=== PATIENT | female | born 1955 | race African-American/Black ===

== ENCOUNTER 2017-04-02 21:45 | Emergency (ER) | payer OTHER ==
[2017-04-02 21:53] VITALS: BMI 46.0
--- NOTE | 2017-04-02 22:14 | PDOC ---
History of Present Illness - General Chief Complaint: Allergic Reaction Stated Complaint: ALLERGIC REACTION Time Seen by Provider: 04/02/17 22:13 - History of Present Illness Initial Comments: 04/02/17 22:13 Ms. Farr is a 61 year old female with a significant past medical history of morbid obesity, hypertension, peripheral vascular disease, and chronic LE edema who presents to the emergency department with a 4 hour history of mild facial swelling after eating dinner. She says that she ate a meal she has had before with no problems from that restaurant, but that she also ordered barton for her mother (which she is allergic to). Symptoms started following dinner. The patient denies chest pain, shortness of breath, headache and dizziness. Denies fever, chills, nausea, vomit, diarrhea and constipation. Denies dysuria, frequency, urgency and hematuria. Past History - Past Medical History Allergies/Adverse Reactions: Allergies Allergy/AdvReac Type Severity Reaction Status Date / Time azithromycin [From Zithromax] Allergy Severe Swelling Verified 04/02/17 21:51 codeine [Codeine] Allergy Severe Swelling Verified 04/02/17 21:51 dexamethasone [From Decadron] Allergy Severe Swelling Verified 04/02/17 21:51 dexamethasone sod phosphate Allergy Severe Swelling Verified 04/02/17 21:51 [From Decadron] diltiazem HCl [From Cardizem] Allergy Severe Swelling Verified 04/02/17 21:51 montelukast sodium Allergy Severe Swelling Verified 04/02/17 21:51 [From Singulair] moxifloxacin HCl Allergy Severe Swelling Verified 04/02/17 21:51 [From Avelox] verapamil [Verapamil] Allergy Severe Swelling Verified 04/02/17 21:51 SOLE Inhibitors Allergy Unknown Swelling Verified 04/02/17 21:51 amoxicillin trihydrate Allergy Hives Verified 04/02/17 21:51 [From Augmentin] doxazosin mesylate Allergy Verified 04/02/17 21:51 [From Cardura] potassium clavulanate Allergy Hives Verified 04/02/17 21:51 [From Augmentin] tigecycline [From Tygacil] AdvReac Mild Itching Verified 04/02/17 21:51 candura Allergy Severe Swelling Uncoded 04/02/17 21:51 Home Medications: Ambulatory Orders Amlodipine Besylate [Norvasc -] 10 mg PO DAILY #0 tablet 06/14/12 Acetaminophen [Tylenol .Regular Strength -] 650 mg PO Q6H PRN #0 tablet Carvedilol [Coreg -] 12.5 mg PO BID #0 tablet 12/13/12 Anemia: Yes Asthma: Yes Cancer: No Cardiac Disorders: No CVA: No COPD: No CHF: No Dementia: No Diabetes: No GI Disorders: Yes (ACID REFLUX, HITIAL HERNIA) Disorders: No HTN: Yes Hypercholesterolemia: No Liver Disease: No Seizures: No Thyroid Disease: No - Surgical History Abdominal Surgery: No Appendectomy: No Cardiac Surgery: No Cholecystectomy: No Lung Surgery: No Neurologic Surgery: No Orthopedic Surgery: No - Immunization History Td Vaccination: Yes Immunization Up to Date: Yes - Suicide/Smoking/Psychosocial Hx Smoking Status: No Smoking History: Never smoked Years of Tobacco Use: 0 Have you smoked in the past 12 months: No Number of Cigarettes Smoked Daily: 0 Cigars Per Day: 0 Hx Alcohol Use: No Drug/Substance Use Hx: No Substance Use Type: None Hx Substance Use Treatment: No Review of Systems - Review of Systems Comments:: 04/02/17 22:14 GENERAL/CONSTITUTIONAL: No fever or chills. No weakness. HEAD, EYES, EARS, NOSE AND THROAT: +Facial swelling on the R jaw/cheek for 4 hours. No change in vision. No ear pain or discharge. No sore throat. CARDIOVASCULAR: No chest pain or shortness of breath RESPIRATORY: No cough, wheezing, or hemoptysis. GASTROINTESTINAL: No nausea, vomiting, diarrhea or constipation. GENITOURINARY: No dysuria, frequency, or change in urination. MUSCULOSKELETAL: No joint or muscle swelling or pain. No neck or back pain. SKIN: No rash NEUROLOGIC: No headache, vertigo, loss of consciousness, or change in strength/ sensation. ENDOCRINE: No increased thirst. No abnormal weight change HEMATOLOGIC/LYMPHATIC: No anemia, easy bleeding, or history of blood clots. ALLERGIC/IMMUNOLOGIC: No hives or skin allergy. *Physical Exam - Vital Signs Last Vital Signs Temp Pulse Resp BP Pulse Ox 98.4 F 77 20 124/84 99 04/02/17 21:51 04/02/17 21:51 04/02/17 21:51 04/02/17 21:51 04/02/17 21:51 - Physical Exam Comments: 04/02/17 22:14 GENERAL: Awake, alert, and fully oriented, in no acute distress HEAD: +R cheek mildly swollen. No signs of trauma, normocephalic, atraumatic EYES: PERRLA, EOMI, sclera anicteric, conjunctiva clear ENT: Auricles normal inspection, hearing grossly normal, nares patent, oropharynx clear without exudates. Moist mucosa NECK: Normal ROM, supple, no lymphadenopathy, JVD, or masses LUNGS: No distress, speaks full sentences, clear to auscultation bilaterally HEART: Regular rate and rhythm, normal S1 and S2, no murmurs, rubs or gallops, peripheral pulses normal and equal bilaterally. ABDOMEN: Soft, nontender, normoactive bowel sounds. No guarding, no rebound. No masses EXTREMITIES: Normal inspection, Normal range of motion, no edema. No clubbing or cyanosis. NEUROLOGICAL: Cranial nerves II through XII grossly intact. Normal speech, normal gait, no focal sensorimotor deficits SKIN: Warm, Dry, normal turgor, no rashes or lesions noted. Medical Decision Making - Medical Decision Making 04/02/17 22:30 Patient presents with extremely mild facial swelling without difficulty breathing, oropharynx swelling, or other allergic symptoms. Due to history it sounds like cross contamination of dinner w/ mother's barton is cause of symptoms. Patient already took 2 25mg Benadryl pills with arrest of symptom progression. 04/02/17 23:48 Patients symptoms have not progressed / patient feels swelling has subsided. Will D/C to home with instructions to return as needed. *DC/Admit/Observation/Transfer Diagnosis at time of Disposition: Allergic reaction Qualifiers: Encounter type: initial encounter Qualified Code(s): T78.40XA - Allergy, unspecified, initial encounter; T78.40XA - Allergy, unspecified, initial encounter - Discharge Dispostion Disposition: HOME - Patient Instructions Printed Discharge Instructions: DI for Food Allergy
--- NOTE | 2017-04-02 22:39 | PDOC ---
Attending Attestation - Resident Resident Name: [email or web address] - ED Attending Attestation I have performed the following: I have examined & evaluated the patient, The case was reviewed & discussed with the resident, I agree w/resident's findings & plan, Exceptions are as noted - HPI HPI: 04/02/17 22:38 61y F hx of htn, pvd, le edema presenting with mild swelling after eating dinner. pt states she has an allergy to many types of spices, shethinks she may have been exposed to some barton during dinner and there has been mild swelling of her left cheek - there has been no associated sob, wheezing, voice changes, dizziness, abd pain, n/v. pts exam is unremarakble including patent airways, no signifciant appreciable swelling. her lungs are clear and abd is soft nontender. pt took benadryl prior to arrival. will observe the pt, if she is asymptomatic for an hour will dc pt with home onitoring. 04/02/17 23:48 pt persistently asympatomic will dc with pd fu return precautions were discussed I discussed the physical exam findings, ancillary test results and final diagnoses with the patient. I answered all of the patient's questions. The patient was satisfied with the care received and felt comfortable with the discharge plan and treatment plan. The patient will call their primary care physician within 24 hours to arrange follow-up and will return to the Emergency Department with any new, persistent or worsening symptoms. - Physicial Exam PE: 04/04/17 09:21 see above - Medical Decision Making 04/04/17 09:21 see above
[2017-04-03 00:04] VITALS: BP 143/88; PULSE 62; TEMP 98.3
== END 2017-04-03 00:04 | disposition home or self-care (01) ==
LOC: JER 21:45
DX: R60.0 Localized edema (principal); T78.40XA Allergy, unspecified, initial encounter; I10 Essential (primary) hypertension; I73.9 Peripheral vascular disease, unspecified; E66.01 Morbid (severe) obesity due to excess calories; Z68.42 Body mass index [BMI] 45.0-49.9, adult
CPT/HCPCS: 99281-25

== ENCOUNTER 2017-06-24 06:26 | Emergency (ER) | payer OTHER ==
[2017-06-24 06:55] VITALS: BMI 46.0
[2017-06-24] MEDS ORDERED: predniSONE 20 MG TABLET (UD) PO ONE (07:37)
[2017-06-24] MEDS ORDERED: RANITIDINE HCL 150 MG TABLET (FP) PO ONE (07:42)
--- NOTE | 2017-06-24 07:42 | PDOC ---
History of Present Illness - General Chief Complaint: Allergic Reaction Stated Complaint: ALLERGIC RX Time Seen by Provider: 06/24/17 07:14 History Source: Patient Exam Limitations: No Limitations - History of Present Illness Initial Comments: 06/24/17 07:39 The patient is a 61F with a PMH of morbid obesity, HTN, PVD, and chronic LE edema who presents to the ED with complaints of an allergic reaction. She states that she woke up with morning feeling like her lips were swollen. She denies any tongue swelling or difficulty breathing. She states that she is allergic to "a lot of medications and spices" and ate a cheeseburger and fries and fruit punch from [employer] last night. She denies being hospitalized for allergic reactions in the past and she has never been intubated. She does states that she's had "plenty of allergic reactions". She denies any tongue swelling, periorbital edema, CP, SOB. Past History - Past Medical History Allergies/Adverse Reactions: Allergies Allergy/AdvReac Type Severity Reaction Status Date / Time azithromycin [From Zithromax] Allergy Severe Swelling Verified 06/24/17 06:56 codeine [Codeine] Allergy Severe Swelling Verified 06/24/17 06:56 dexamethasone [From Decadron] Allergy Severe Swelling Verified 06/24/17 06:56 dexamethasone sod phosphate Allergy Severe Swelling Verified 06/24/17 06:56 [From Decadron] diltiazem HCl [From Cardizem] Allergy Severe Swelling Verified 06/24/17 06:56 montelukast sodium Allergy Severe Swelling Verified 06/24/17 06:56 [From Singulair] moxifloxacin HCl Allergy Severe Swelling Verified 06/24/17 06:56 [From Avelox] verapamil [Verapamil] Allergy Severe Swelling Verified 06/24/17 06:56 SOLE Inhibitors Allergy Unknown Swelling Verified 06/24/17 06:56 amoxicillin trihydrate Allergy Hives Verified 06/24/17 06:56 [From Augmentin] doxazosin mesylate Allergy Verified 06/24/17 06:56 [From Cardura] potassium clavulanate Allergy Hives Verified 06/24/17 06:56 [From Augmentin] tigecycline [From Tygacil] AdvReac Mild Itching Verified 06/24/17 06:56 candura Allergy Severe Swelling Uncoded 06/24/17 06:56 Home Medications: Ambulatory Orders Amlodipine Besylate [Norvasc -] 10 mg PO DAILY #0 tablet 06/14/12 Acetaminophen [Tylenol .Regular Strength -] 650 mg PO Q6H PRN #0 tablet Carvedilol [Coreg -] 12.5 mg PO BID #0 tablet 12/13/12 Cetirizine HCl [Zyrtec -] 10 mg PO DAILY 06/24/17 Famotidine [Pepcid -] 40 mg PO DAILY #4 tablet MDD 1 06/24/17 Prednisone [Deltasone -] 40 mg PO DAILY #4 tablet MDD 1 06/24/17 Anemia: Yes Asthma: Yes Cancer: No Cardiac Disorders: No CVA: No COPD: No CHF: No Dementia: No Diabetes: No GI Disorders: Yes (ACID REFLUX, HITIAL HERNIA) Disorders: No HTN: Yes Hypercholesterolemia: No Liver Disease: No Seizures: No Thyroid Disease: No - Surgical History Abdominal Surgery: No Appendectomy: No Cardiac Surgery: No Cholecystectomy: No Lung Surgery: No Neurologic Surgery: No Orthopedic Surgery: No - Immunization History Td Vaccination: Yes Immunization Up to Date: Yes - Suicide/Smoking/Psychosocial Hx Smoking Status: No Smoking History: Never smoked Years of Tobacco Use: 0 Have you smoked in the past 12 months: No Number of Cigarettes Smoked Daily: 0 Cigars Per Day: 0 Hx Alcohol Use: No Drug/Substance Use Hx: No Substance Use Type: None Hx Substance Use Treatment: No Review of Systems - Review of Systems Able to Perform ROS?: Yes Comments:: 06/24/17 07:50 GENERAL/CONSTITUTIONAL: No fever or chills. No weakness. HEAD, EYES, EARS, NOSE AND THROAT: Positive for lip swelling. No change in vision. No ear pain or discharge. No sore throat. GASTROINTESTINAL: No nausea, vomiting, diarrhea, constipation, or abdominal pain. GENITOURINARY: No dysuria, frequency, hematuria, or change in urination. CARDIOVASCULAR: No chest pain, palpitations, or lightheadedness. RESPIRATORY: No cough, wheezing, shortness of breath, or hemoptysis. MUSCULOSKELETAL: No joint or muscle swelling or pain. No neck or back pain. SKIN: No rash or lesions. NEUROLOGIC: No headache, numbness, tingling, weakness, loss of consciousness, or change in strength/sensation. ENDOCRINE: No increased thirst. No abnormal weight change. HEMATOLOGIC/LYMPHATIC: No anemia, easy bleeding, or history of blood clots. ALLERGIC/IMMUNOLOGIC: No hives or skin allergy. Is the patient limited Russian proficient: No *Physical Exam - Vital Signs Last Vital Signs Temp Pulse Resp BP Pulse Ox 98.9 F 70 19 150/58 99 06/24/17 06:51 06/24/17 06:51 06/24/17 07:23 06/24/17 06:51 06/24/17 07:23 - Physical Exam Comments: 06/24/17 07:50 GENERAL: Well developed, well nourished. Awake and alert. No acute distress. HEENT: Mild perioral/lip edema. No tongue edema, no periobital edema. Normocephalic, atraumatic. Hearing grossly normal. Moist mucous membranes. NECK: Supple. Full ROM. No JVD. No lymphadenopathy. CARDIOVASCULAR: Regular rate and rhythm. No murmurs, rubs, or gallops. Distal pulses are 2+ and symmetric. PULMONARY: No evidence of respiratory distress. Lungs clear to auscultation bilaterally. No wheezing, rales or rhonchi. ABDOMINAL: Soft. Non-tender. Non-distended. No rebound or guarding. No organomegaly. Normoactive bowel sounds. GENITOURINARY: No CVA tenderness bilaterally. MUSCULOSKELETAL: Normal range of motion at all joints. No bony deformities or tenderness. EXTREMITIES: No cyanosis. No clubbing. 3+ edema in LE b/l. No calf tenderness. SKIN: Warm and dry. Normal capillary refill. No rashes. No jaundice. NEUROLOGICAL: Alert, awake, appropriate. Cranial nerves 2-12 intact. Normal speech. Gait is normal without ataxia. PSYCHIATRIC: Cooperative. Good eye contact. Appropriate mood and affect. Medical Decision Making - Medical Decision Making 06/24/17 07:51 The patient is a 61F with a history of allergic reactions who presents to the ED after stating that she woke up from sleep and saw that her lips were swollen. She has taken 2-25mg of benadryl. She is stable. Will administer zantac and prednisone and monitor. Pt is also hemodynamically stable. 06/24/17 08:33 Patient states she is feeling a little better. Perioral/lip edema slightly improved. 06/24/17 09:54 Patient's angioedema has improved. Will d/c home with instructions to come back if any of the angioedema worsens. Will prescribe prednisone daily and famotidine daily x 4 days. *DC/Admit/Observation/Transfer Diagnosis at time of Disposition: Allergic reaction Qualifiers: Encounter type: initial encounter Qualified Code(s): T78.40XA - Allergy, unspecified, initial encounter - Discharge Dispostion Disposition: HOME Condition at time of disposition: Stable Admit: No - Prescriptions Prescriptions: Famotidine [Pepcid -] 40 mg PO DAILY #4 tablet MDD 1 Prednisone [Deltasone -] 40 mg PO DAILY #4 tablet MDD 1 - Referrals - Patient Instructions Printed Discharge Instructions: DI for Adverse Drug Reaction -- Allergic Additional Instructions: Please return to the ER if symptoms persist, worsen, or new symptoms arise. Please follow up with your primary care physician in 2-3 days. Please return to the ER if you have any signs or symptoms of increased lip, tongue, or eye swelling, difficulty breathing, chest pain, shortness of breath, uncontrollable fever, chills, nausea, vomiting, numbness, tingling, or weakness in any part of your body, changes in vision, or slurred speech. Please take benadryl as needed for your allergies. - Post Discharge Activity
[2017-06-24] MEDS ORDERED: predniSONE 20 MG TABLET (UD) ONE (07:43)
[2017-06-24] MEDS ORDERED: RANITIDINE HCL 150 MG TABLET (FP) ONE (07:46)
--- NOTE | 2017-06-24 08:06 | PDOC ---
Attending Attestation - HPI HPI: 06/24/17 08:11 The patient is a 61 year old female with a significant PMH of HTN, PVD, obesity , and chronic lower extremity edema who presents to the emergency department with lip swelling beginning approximately last night. She reports her last meal being fries and fruit punch from [employer]. She reports taking 2 50 mg Benadryl this morning to some relief. The patient notes she has many allergies to spices and medications. She denies tongue swelling or respiratory changes. Allergies: Azithromycin, Codeine, Dexamethasone, Dexamethasone sod phosphate, Diltiazem HCl, Montelukast sodium, Moxifloxacin HCl, Verapamil, SOLE inhibitors, Amoxicillin trihydrate, Doxazosin mesylate, Potassium clavulanate, Tigecycline, Candura. - Physicial Exam PE: 06/24/17 08:11 GENERAL: Awake, alert, and fully oriented, in no acute distress HEAD: No signs of trauma EYES: PERRLA, EOMI, sclera anicteric, conjunctiva clear ENT: (+) Upper and lower lip swelling. No tongue or throat swelling. Auricles normal inspection, hearing grossly normal, nares patent, oropharynx clear without exudates. Moist mucosa NECK: Normal ROM, supple, no lymphadenopathy, JVD, or masses LUNGS: Breath sounds equal, clear to auscultation bilaterally. No wheezes, and no crackles. No stridor. HEART: Regular rate and rhythm, normal S1 and S2, no murmurs, rubs or gallops ABDOMEN: Soft, nontender, normoactive bowel sounds. No guarding, no rebound. No masses EXTREMITIES: Normal range of motion, no edema. No clubbing or cyanosis. No cords, erythema, or tenderness NEUROLOGICAL: Cranial nerves II through XII grossly intact. Normal speech, normal gait SKIN: Warm, Dry, normal turgor, no rashes or lesions noted. No urticaria. <Sridhar Sheppard - Last Filed: 06/24/17 08:11> - Resident Resident Name: Dominic Orantes - ED Attending Attestation I have performed the following: I have examined & evaluated the patient, The case was reviewed & discussed with the resident, I agree w/resident's findings & plan, Exceptions are as noted - Medical Decision Making 06/24/17 08:05 a/p: 61yo female with allergic reaction/lip swelling -no tongue swelling -posterior pharynx clear -no stridor -speaking in full sentences -tolerating secretions and drinking water -hx of multiple allergies - has seen allergiest in the past and was doing allergy shots in the past -took benaryl at home -will give steroids and pepcid in ED -no need for epipen at this time. 06/24/17 10:00 re-eval: pt improving. lip swelling improving stable for d/c to home has epipen at home follows with Dr. Alyssa Hooker for allergy recommended new allergy testing will give Rx for prednisone and pepcid pt understands all reasons to return to the ED and need for follow up. Pt feeling better <Lucina Curran - Last Filed: 06/24/17 10:01>
[2017-06-24 10:13] VITALS: BP 135/80; PULSE 82; TEMP 98.3
== END 2017-06-24 10:13 | disposition home or self-care (01) ==
LOC: JER 06:26
DX: T78.40XA Allergy, unspecified, initial encounter (principal); X58.XXXA Exposure to other specified factors, initial encounter; I10 Essential (primary) hypertension; I73.9 Peripheral vascular disease, unspecified; R60.0 Localized edema; K21.9 Gastro-esophageal reflux disease without esophagitis; E66.01 Morbid (severe) obesity due to excess calories; Z68.42 Body mass index [BMI] 45.0-49.9, adult
CPT/HCPCS: 99282-25

== ENCOUNTER 2017-06-26 14:26 | Emergency (ER) | payer OTHER ==
[2017-06-26 14:41] VITALS: BP 126/71; PULSE 79; TEMP 98.3; BMI 46.0
--- NOTE | 2017-06-26 15:22 | PDOC ---
History of Present Illness <Geo Sawant - Last Filed: 06/26/17 15:36> - General History Source: Patient Exam Limitations: No Limitations - History of Present Illness Initial Comments: 06/26/17 15:50 The patient is a 61-year-old female with a significant past medical history of morbid obesity, HTN, PVD, and chronic LE edema, who presents to the emergency department for left tongue swelling today. Patient has a history of many allergies, and reports she was here 3 days ago for an allergic reaction. She states they were unable to find the source of the last reaction. She states she was having Susan cookies and began to feel swelling at the left side of her tongue, accompanied by mild shortness of breath. She reports she took two Benadryls at home with moderate relief. She denies any history of nut allergies. Upon interview, she states she is feeling better, and that the swelling in her tongue has improved. The patient denies chest pain, headache and dizziness. The patient denies fever , chills, nausea, vomit, diarrhea and constipation. The patient denies dysuria, frequency, urgency and hematuria. <Yolis Peck - Last Filed: 06/26/17 15:51> - General Chief Complaint: Allergic Reaction Stated Complaint: ALLERGIC REACTION Time Seen by Provider: 06/26/17 15:22 Past History - Past Medical History Anemia: Yes Asthma: Yes Cancer: No Cardiac Disorders: No CVA: No COPD: No CHF: No Dementia: No Diabetes: No GI Disorders: Yes (ACID REFLUX, HITIAL HERNIA) Disorders: No HTN: Yes Hypercholesterolemia: No Liver Disease: No Seizures: No Thyroid Disease: No - Surgical History Abdominal Surgery: No Appendectomy: No Cardiac Surgery: No Cholecystectomy: No Lung Surgery: No Neurologic Surgery: No Orthopedic Surgery: No - Immunization History Td Vaccination: Yes Immunization Up to Date: Yes - Suicide/Smoking/Psychosocial Hx Smoking Status: No Smoking History: Never smoked Years of Tobacco Use: 0 Have you smoked in the past 12 months: No Number of Cigarettes Smoked Daily: 0 Cigars Per Day: 0 Hx Alcohol Use: No Drug/Substance Use Hx: No Substance Use Type: None Hx Substance Use Treatment: No <Geo Sawant - Last Filed: 06/26/17 15:36> <Yolis Peck - Last Filed: 06/26/17 15:51> - Past Medical History Allergies/Adverse Reactions: Allergies Allergy/AdvReac Type Severity Reaction Status Date / Time azithromycin [From Zithromax] Allergy Severe Swelling Verified 06/26/17 14:38 codeine [Codeine] Allergy Severe Swelling Verified 06/26/17 14:38 dexamethasone [From Decadron] Allergy Severe Swelling Verified 06/26/17 14:38 dexamethasone sod phosphate Allergy Severe Swelling Verified 06/26/17 14:38 [From Decadron] diltiazem HCl [From Cardizem] Allergy Severe Swelling Verified 06/26/17 14:38 montelukast sodium Allergy Severe Swelling Verified 06/26/17 14:38 [From Singulair] moxifloxacin HCl Allergy Severe Swelling Verified 06/26/17 14:38 [From Avelox] verapamil [Verapamil] Allergy Severe Swelling Verified 06/26/17 14:38 SOLE Inhibitors Allergy Unknown Swelling Verified 06/26/17 14:38 amoxicillin trihydrate Allergy Hives Verified 06/26/17 14:38 [From Augmentin] doxazosin mesylate Allergy Verified 06/26/17 14:38 [From Cardura] potassium clavulanate Allergy Hives Verified 06/26/17 14:38 [From Augmentin] tigecycline [From Tygacil] AdvReac Mild Itching Verified 06/26/17 14:38 candura Allergy Severe Swelling Uncoded 06/26/17 14:38 Home Medications: Ambulatory Orders Amlodipine Besylate [Norvasc -] 10 mg PO DAILY #0 tablet 06/14/12 Acetaminophen [Tylenol .Regular Strength -] 650 mg PO Q6H PRN #0 tablet Carvedilol [Coreg -] 12.5 mg PO BID #0 tablet 12/13/12 Cetirizine HCl [Zyrtec -] 10 mg PO DAILY 06/24/17 Famotidine [Pepcid -] 40 mg PO DAILY #4 tablet MDD 1 06/24/17 Prednisone [Deltasone -] 40 mg PO DAILY #4 tablet MDD 1 06/24/17 Review of Systems - Review of Systems Able to Perform ROS?: Yes Comments:: 06/26/17 15:50 GENERAL/CONSTITUTIONAL: No fever or chills. No weakness. HEAD, EYES, EARS, NOSE AND THROAT: No change in vision. No ear pain or discharge. No sore throat. (+) Left tongue swelling. CARDIOVASCULAR: No chest pain or shortness of breath. RESPIRATORY: No cough, wheezing, or hemoptysis. GASTROINTESTINAL: No nausea, vomiting, diarrhea or constipation. GENITOURINARY: No dysuria, frequency, or change in urination. MUSCULOSKELETAL: No joint or muscle swelling or pain. No neck or back pain. SKIN: No rash NEUROLOGIC: No headache, vertigo, loss of consciousness, or change in strength/ sensation. ENDOCRINE: No increased thirst. No abnormal weight change. HEMATOLOGIC/LYMPHATIC: No anemia, easy bleeding, or history of blood clots. ALLERGIC/IMMUNOLOGIC: No hives or skin allergy. <Peck,Yolis - Last Filed: 06/26/17 15:51> *Physical Exam - Vital Signs Last Vital Signs Temp Pulse Resp BP Pulse Ox 98.3 F 79 20 126/71 99 06/26/17 14:38 06/26/17 14:38 06/26/17 14:38 06/26/17 14:38 06/26/17 14:38 <Geo Sawant - Last Filed: 06/26/17 15:36> - Vital Signs Last Vital Signs Temp Pulse Resp BP Pulse Ox 98.3 F 79 20 126/71 99 06/26/17 14:38 06/26/17 14:38 06/26/17 14:38 06/26/17 14:38 06/26/17 14:38 - Physical Exam Comments: 06/26/17 15:50 GENERAL: Awake, alert, and fully oriented, in no acute distress HEAD: No signs of trauma EYES: PERRLA, EOMI, sclera anicteric, conjunctiva clear ENT: Auricles normal inspection, hearing grossly normal, nares patent, oropharynx clear without exudates. Moist mucosa NECK: Normal ROM, supple, no lymphadenopathy, JVD, or masses LUNGS: Breath sounds equal, clear to auscultation bilaterally. No wheezes, and no crackles HEART: Regular rate and rhythm, normal S1 and S2, no murmurs, rubs or gallops ABDOMEN: Soft, nontender, normoactive bowel sounds. No guarding, no rebound. No masses EXTREMITIES: Normal range of motion, no edema. No clubbing or cyanosis. No cords, erythema, or tenderness NEUROLOGICAL: Cranial nerves II through XII grossly intact. Normal speech, normal gait SKIN: Warm, Dry, normal turgor, no rashes or lesions noted. <Yolis Peck - Last Filed: 06/26/17 15:51> *DC/Admit/Observation/Transfer - Discharge Dispostion Admit: No - Attestations Physician Attestion: 06/26/17 15:22 I, Dr. Geo Sawant, attest that this document has been prepared under my direction and personally reviewed by me in its entirety. I further attest, that it accurately reflects all work, treatment, procedures and medical decision -making performed by me. <Geo Sawant - Last Filed: 06/26/17 15:36> - Attestations Scribe Attestion: 06/26/17 15:51 Documentation prepared by Yolis Peck, acting as biomedical manager for Geo Sawant MD/DO. <Yolis Peck - Last Filed: 06/26/17 15:51> Diagnosis at time of Disposition: Anxiety Allergic reaction Qualifiers: Encounter type: initial encounter Qualified Code(s): T78.40XA - Allergy, unspecified, initial encounter - Discharge Dispostion Disposition: HOME Condition at time of disposition: Good - Referrals Referrals: Alejandro Wilkes MD [Primary Care Provider] - - Patient Instructions Printed Discharge Instructions: DI for Eye Allergic Reaction Additional Instructions: Mrs Farr, Nathalia you are going through this right now. See your primary care doctor for a referral to an [facility] teacher for blood testing to see what it is that you are allergic to. Otherwise return to us if any problems whatsoever. Best- Dr. Geo Sawant - Post Discharge Activity
== END 2017-06-26 15:50 | disposition home or self-care (01) ==
LOC: JER 14:26
DX: F41.9 Anxiety disorder, unspecified (principal); T78.40XA Allergy, unspecified, initial encounter; I10 Essential (primary) hypertension; J45.909 Unspecified asthma, uncomplicated; K21.9 Gastro-esophageal reflux disease without esophagitis
CPT/HCPCS: 99282-25

== ENCOUNTER 2017-09-12 17:12 | Emergency (ER) | payer OTHER ==
[2017-09-12 17:43] VITALS: BP 116/66; PULSE 65; TEMP 98; BMI 45.1
--- NOTE | 2017-09-12 17:49 | PDOC ---
History of Present Illness - General Chief Complaint: Allergic Reaction Stated Complaint: ALLERGIC REACTION Time Seen by Provider: 09/12/17 17:48 - History of Present Illness Initial Comments: 09/12/17 18:12 Chief complaint: ALLERGIC reaction History of present illness: 61 years old past medical history significant for hypertension, multiple ALLERGIES presents emergency department after developing some throat itching and tightness after eating a chicken salad sandwich. Patient took 2 Benadryl and came to the emergency Department. Upon arrival to the emergency department her symptoms have resolved. She endorses no difficulty breathing or swallowing or tightness. Symptoms were exacerbated by chicken alleviated by Benadryl therefore moderate in severity and nonradiating. There is no associated fever chills headache chest pain shortness of breath Past History - Past Medical History Allergies/Adverse Reactions: Allergies Allergy/AdvReac Type Severity Reaction Status Date / Time azithromycin [From Zithromax] Allergy Severe Swelling Verified 06/26/17 14:38 codeine [Codeine] Allergy Severe Swelling Verified 06/26/17 14:38 dexamethasone [From Decadron] Allergy Severe Swelling Verified 06/26/17 14:38 dexamethasone sod phosphate Allergy Severe Swelling Verified 06/26/17 14:38 [From Decadron] diltiazem HCl [From Cardizem] Allergy Severe Swelling Verified 06/26/17 14:38 montelukast sodium Allergy Severe Swelling Verified 06/26/17 14:38 [From Singulair] moxifloxacin HCl Allergy Severe Swelling Verified 06/26/17 14:38 [From Avelox] verapamil [Verapamil] Allergy Severe Swelling Verified 06/26/17 14:38 SOLE Inhibitors Allergy Unknown Swelling Verified 06/26/17 14:38 amoxicillin trihydrate Allergy Hives Verified 06/26/17 14:38 [From Augmentin] doxazosin mesylate Allergy Verified 06/26/17 14:38 [From Cardura] potassium clavulanate Allergy Hives Verified 06/26/17 14:38 [From Augmentin] tigecycline [From Tygacil] AdvReac Mild Itching Verified 06/26/17 14:38 candura Allergy Severe Swelling Uncoded 06/26/17 14:38 Home Medications: Ambulatory Orders Amlodipine Besylate [Norvasc -] 10 mg PO DAILY #0 tablet 06/14/12 Acetaminophen [Tylenol .Regular Strength -] 650 mg PO Q6H PRN #0 tablet Carvedilol [Coreg -] 12.5 mg PO BID #0 tablet 12/13/12 Cetirizine HCl [Zyrtec -] 10 mg PO DAILY 06/24/17 Famotidine [Pepcid -] 40 mg PO DAILY #4 tablet MDD 1 06/24/17 predniSONE [Deltasone -] 40 mg PO DAILY #4 tablet MDD 1 06/24/17 Epinephrine [Epipen 2-Claus] 0.3 mg IJ ASDIR #1 kit 09/12/17 Anemia: Yes Asthma: Yes Cancer: No Cardiac Disorders: No CVA: No COPD: No CHF: No Dementia: No Diabetes: No GI Disorders: Yes (ACID REFLUX, HITIAL HERNIA) Disorders: No HTN: Yes Hypercholesterolemia: No Liver Disease: No Seizures: No Thyroid Disease: No Other medical history: lymphodema - Surgical History Abdominal Surgery: No Appendectomy: No Cardiac Surgery: No Cholecystectomy: No Lung Surgery: No Neurologic Surgery: No Orthopedic Surgery: No - Immunization History Td Vaccination: Yes Immunization Up to Date: Yes - Suicide/Smoking/Psychosocial Hx Smoking Status: No Smoking History: Never smoked Years of Tobacco Use: 0 Have you smoked in the past 12 months: No Number of Cigarettes Smoked Daily: 0 Cigars Per Day: 0 Information on smoking cessation initiated: No Hx Alcohol Use: No Drug/Substance Use Hx: No Substance Use Type: None Hx Substance Use Treatment: No Review of Systems - Review of Systems Comments:: 09/12/17 18:13 ROS: A complete review of 10 out of 10 review of systems is taken and is negative apart from what is previously mentioned below and in the HPI. *Physical Exam - Vital Signs Last Vital Signs Temp Pulse Resp BP Pulse Ox 98.0 F 65 16 116/66 98 09/12/17 17:15 09/12/17 17:15 09/12/17 17:15 09/12/17 17:15 09/12/17 17:15 - Physical Exam Comments: 09/12/17 18:14 Vitals: Triage Vital signs reviewed General Appearance: no acute distress, well nourished well developed, Head: Atraumatic, Eyes: Pupils equal reactive round, extraocular movement intact Nose: Nares patent bilaterally;no nasal congestion Throat: Posterior oropharynx without erythema, mucous membranes moist,, no stridor Neck: Supple;No Nucal rigidity Chest Wall: Nontender Cardiac: Regular rate and rhythym, no murmurs, no rubs, no gallops, Lungs: Clear to auscultation bilateral, good air movement bilaterally, Abdomen: Soft, non distended, normal bowel sounds, non tender to palpation Extremities: Full range of motion to all extremities, no cyanosis, clubbing, or edema Skin: Warm and dry, no rashes or lesions, no rash, no petechiae Psych: normal mood, normal affect Medical Decision Making - Medical Decision Making 09/12/17 18:14 Patient with mild ALLERGIC reaction resolved with Benadryl here in the emergency department well-appearing no apparent distress no stridor no symptoms at this time. We'll discharge with when necessary Benadryl as well as a prescription for EpiPen in case of more severe ALLERGIC reaction Patient will follow-up with her primary care provider once 2 days Findings, the need for follow-up, strict return instructions discussed with patient. *DC/Admit/Observation/Transfer Diagnosis at time of Disposition: Allergic reaction Qualifiers: Encounter type: initial encounter Qualified Code(s): T78.40XA - Allergy, unspecified, initial encounter - Referrals - Patient Instructions Printed Discharge Instructions: DI for Food Allergy Additional Instructions: Continue [id number] Benadryl as directed on package. EpiPen for severe life-threatening ALLERGIC reaction. Return to the ED for any severe worsening symptoms or for any concerns. Follow-up with your doctor in 1-2 days. - Post Discharge Activity
== END 2017-09-12 18:26 | disposition home or self-care (01) ==
LOC: JER 17:12
DX: T78.1XXA Other adverse food reactions, not elsewhere classified, initial encounter (principal); X58.XXXA Exposure to other specified factors, initial encounter
CPT/HCPCS: 99281-25

== ENCOUNTER 2017-11-18 19:22 | Emergency (ER) | payer OTHER ==
[2017-11-18 20:05] VITALS: BP 152/86; PULSE 82; TEMP 97.2; BMI 26.5
--- NOTE | 2017-11-18 20:09 | PDOC ---
History of Present Illness - General Chief Complaint: Allergic Reaction Stated Complaint: ALLERGIC REACTION Time Seen by Provider: 11/18/17 19:53 History Source: Patient, Old Records Exam Limitations: No Limitations - History of Present Illness Initial Comments: 11/18/17 20:03 This 61-year-old woman with history of multiple food and medication ALLERGIES, lymphedema who presents emergency Department with feeling of a "swollen tongue" after eating macaroni and cheese she got at its her mormonism today. Patient states this is abnormal in the past and she took Benadryl 50 mg orally prior to coming to the hospital. Patient has an EpiPen was afraid to use it. She activated EMS for transfer to the emergency department. Upon arrival patient was totally asymptomatic and no longer has the "swollen tongue" feeling that she had which prompted EMS activation. She denies drooling, difficulty swallowing, shortness of breath, difficulty breathing, abdominal pain, nausea, vomiting. Past History - Past Medical History Allergies/Adverse Reactions: Allergies Allergy/AdvReac Type Severity Reaction Status Date / Time azithromycin [From Zithromax] Allergy Severe Swelling Verified 11/18/17 20:06 codeine [Codeine] Allergy Severe Swelling Verified 11/18/17 20:06 dexamethasone [From Decadron] Allergy Severe Swelling Verified 11/18/17 20:06 dexamethasone sod phosphate Allergy Severe Swelling Verified 11/18/17 20:06 [From Decadron] diltiazem HCl [From Cardizem] Allergy Severe Swelling Verified 11/18/17 20:06 montelukast sodium Allergy Severe Swelling Verified 11/18/17 20:06 [From Singulair] moxifloxacin HCl Allergy Severe Swelling Verified 11/18/17 20:06 [From Avelox] verapamil [Verapamil] Allergy Severe Swelling Verified 11/18/17 20:06 SOLE Inhibitors Allergy Unknown Swelling Verified 11/18/17 20:06 amoxicillin trihydrate Allergy Hives Verified 11/18/17 20:06 [From Augmentin] doxazosin mesylate Allergy Verified 11/18/17 20:06 [From Cardura] potassium clavulanate Allergy Hives Verified 11/18/17 20:06 [From Augmentin] tigecycline [From Tygacil] AdvReac Mild Itching Verified 11/18/17 20:06 candura Allergy Severe Swelling Uncoded 11/18/17 20:06 Home Medications: Ambulatory Orders Amlodipine Besylate [Norvasc -] 10 mg PO DAILY #0 tablet 06/14/12 Acetaminophen [Tylenol .Regular Strength -] 650 mg PO Q6H PRN #0 tablet Carvedilol [Coreg -] 12.5 mg PO BID #0 tablet 12/13/12 Cetirizine HCl [Zyrtec -] 10 mg PO DAILY 06/24/17 Famotidine [Pepcid -] 40 mg PO DAILY #4 tablet MDD 1 06/24/17 predniSONE [Deltasone -] 40 mg PO DAILY #4 tablet MDD 1 06/24/17 Epinephrine [Epipen 2-Claus] 0.3 mg IJ ASDIR #1 kit 09/12/17 Anemia: Yes Asthma: Yes Cancer: No Cardiac Disorders: No CVA: No COPD: No CHF: No Dementia: No Diabetes: No GI Disorders: Yes (ACID REFLUX, HITIAL HERNIA) Disorders: No HTN: Yes Hypercholesterolemia: No Liver Disease: No Seizures: No Thyroid Disease: No - Surgical History Abdominal Surgery: No Appendectomy: No Cardiac Surgery: No Cholecystectomy: No Lung Surgery: No Neurologic Surgery: No Orthopedic Surgery: No - Immunization History Td Vaccination: Yes Immunization Up to Date: Yes - Suicide/Smoking/Psychosocial Hx Smoking Status: No Smoking History: Never smoked Years of Tobacco Use: 0 Have you smoked in the past 12 months: No Number of Cigarettes Smoked Daily: 0 Cigars Per Day: 0 Hx Alcohol Use: No Drug/Substance Use Hx: No Substance Use Type: None Hx Substance Use Treatment: No Review of Systems - Review of Systems Able to Perform ROS?: Yes Is the patient limited Portuguese proficient: No Constitutional: No: Symptoms Reported HEENTM: Yes: See HPI Respiratory: No: Symptoms reported Cardiac (ROS): No: Symptoms Reported ABD/GI: No: Symptoms Reported : No: Symptoms Reported Musculoskeletal: No: Symptoms Reported Integumentary: No: Symptoms Reported Neurological: No: Symptoms reported Endocrine: No: Symptoms Reported Hematologic/Lymphatic: No: Symptoms Reported *Physical Exam - Physical Exam General Appearance: Yes: Appropriately Dressed. No: Apparent Distress HEENT: positive: Normal ENT Inspection Neck: positive: Trachea midline, Supple. negative: Stridor Respiratory/Chest: positive: Lungs Clear, Normal Breath Sounds. negative: Respiratory Distress, Accessory Muscle Use Cardiovascular: positive: Regular Rhythm, Regular Rate, Edema. negative: Murmur Gastrointestinal/Abdominal: positive: Normal Bowel Sounds, Soft. negative: Tender Musculoskeletal: positive: Normal Inspection. negative: CVA Tenderness Extremity: positive: Normal Inspection Integumentary: positive: Normal Color, Dry, Warm Neurologic: positive: Alert, Normal Response Medical Decision Making - Medical Decision Making 11/18/17 20:06 A/P: 61-year-old woman with multiple food ALLERGIES with a "swollen tongue" feeling after eating macaroni and cheese from her mormonism that Oropharynx without edema noted. Palpation of the sublingual areas reveals no edema Patient is able to swallow her own secretions without difficulty No stridor Respirations even and unlabored Lungs clear to auscultation bilaterally Spo2- 100% on room air Patient with +4 bilateral lower extremity edema which she states is normal lymphedema It has been explained to the patient that she needs to overcome her fear of using an EpiPen at any time she feels shortness of breath, tongue swelling, difficulty swallowing. Patient was educated to keep Pepcid or Zantac in her purse along with the Benadryl she currently keeps there should she have any other signs and symptoms of ALLERGIC reaction. Given her resolution of symptoms discharge the patient home. *DC/Admit/Observation/Transfer Diagnosis at time of Disposition: Allergic reaction Qualifiers: Encounter type: initial encounter Qualified Code(s): T78.40XA - Allergy, unspecified, initial encounter - Discharge Dispostion Disposition: HOME Condition at time of disposition: Fair Decision to Admit order: No - Referrals - Patient Instructions Additional Instructions: Keep Pepcid or Zantac in her purse along with the Benadryl she should you experience any symptoms. Take 2 tablets in addition to your Benadryl if you have any shortness of breath, difficulty swallowing, tongue swelling, feeling that she throat is closing. Do not be afraid to use her EpiPen. They've been prescribed this medication to help save her life should she need it. Return to emergency department for any shortness of breath, difficulty swallowing, difficulty breathing, feeling that her tongue swelling or throat is closing or any other concerns. Thank you very much for choosing us to provide emergent health care needs. - Post Discharge Activity
--- NOTE | 2017-11-18 20:19 | PDOC ---
*Physical Exam - Vital Signs Last Vital Signs Temp Pulse Resp BP Pulse Ox 97.2 F L 82 19 152/86 99 11/18/17 19:45 11/18/17 19:45 11/18/17 19:45 11/18/17 19:45 11/18/17 19:45 Medical Decision Making - Medical Decision Making 11/18/17 20:14 Ms Farr is a 61 yo F presenting to the ER with a complaint of a feeling that her tongue was swollen s/p eating mac and cheese No prior reactions to this Pt has had multiple allergic reactions in the past (to meds and spices - basil, adrian, thyme), not to pasta or cheese The food was made by someone else No wheezing No drooling No urticaria No nausea or vomiting currently she feel much better, her tongue no longer feels swollen Will discharge to home Pt seen by Midlevel Provider under my direct supervision Pt interviewed and examined Ancillary studies reviewed I agree with plan as outlined by Midlevel Provider *DC/Admit/Observation/Transfer Diagnosis at time of Disposition: Allergic reaction Qualifiers: Encounter type: initial encounter Qualified Code(s): T78.40XA - Allergy, unspecified, initial encounter - Discharge Dispostion Disposition: HOME Condition at time of disposition: Fair - Referrals - Patient Instructions Additional Instructions: Keep Pepcid or Zantac in her purse along with the Benadryl she should you experience any symptoms. Take 2 tablets in addition to your Benadryl if you have any shortness of breath, difficulty swallowing, tongue swelling, feeling that she throat is closing. Do not be afraid to use her EpiPen. They've been prescribed this medication to help save her life should she need it. Return to emergency department for any shortness of breath, difficulty swallowing, difficulty breathing, feeling that her tongue swelling or throat is closing or any other concerns. Thank you very much for choosing us to provide emergent health care needs. - Post Discharge Activity
== END 2017-11-18 20:51 | disposition home or self-care (01) ==
LOC: JER 19:22
DX: T78.1XXA Other adverse food reactions, not elsewhere classified, initial encounter (principal); Z88.8 Allergy status to other drugs, medicaments and biological substances; Z91.018 Allergy to other foods
CPT/HCPCS: 99282-25

== ENCOUNTER 2018-10-04 13:54 | Emergency (ER) | payer BC, OTHER ==
[2018-10-04 14:09] VITALS: BP 140/78; PULSE 73; TEMP 98.2; BMI 46.0
--- NOTE | 2018-10-04 15:52 | PDOC ---
History of Present Illness - General History Source: Patient Exam Limitations: Clinical Condition - History of Present Illness Initial Comments: 10/04/18 15:47 Patient with history of hypertension, bilateral peripheral vascular disease. Chronic peripheral edema present with complaint of one year history of swelling to bilateral legs with one-week history of discharge from [facility] of left lower leg. Denies any redness to area. Patient reported clear discharge from swelling of left lower leg. Patient denies fever, chills. Patient reported she was instructed by PCP to follow-up in vascular clinic in [facility] for management of her peripheral vascular disease a year ago but never followed up and would follow-up now. Patient was admitted a year ago with bilateral peripheral edema and cellulitis of left leg which required IV antibiotics. Patient reports symptoms no does not look the same as a year ago. Patient wishes to be treated on outpatient basis and will follow up with vascular clinic Timing/Duration: 1 week <Ousmane Tovar - Last Filed: 10/04/18 18:33> <Sophy Howe - Last Filed: 10/06/18 13:47> - General Chief Complaint: Wound Stated Complaint: LF LEG INJURY Time Seen by Provider: 10/04/18 14:31 Past History - Past Medical History Anemia: Yes Asthma: Yes Cancer: No Cardiac Disorders: No CVA: No COPD: No CHF: No Dementia: No Diabetes: No GI Disorders: Yes (ACID REFLUX, HITIAL HERNIA) Disorders: No HTN: Yes Hypercholesterolemia: No Liver Disease: No Seizures: No Thyroid Disease: No Other medical history: LYMPHEDEMA, OSTEOARTHRITIS - Surgical History Abdominal Surgery: No Appendectomy: No Cardiac Surgery: No Cholecystectomy: No Lung Surgery: No Neurologic Surgery: No Orthopedic Surgery: No - Immunization History Td Vaccination: Yes Immunization Up to Date: Yes - Suicide/Smoking/Psychosocial Hx Smoking Status: No Smoking History: Never smoked Years of Tobacco Use: 0 Have you smoked in the past 12 months: No Number of Cigarettes Smoked Daily: 0 Cigars Per Day: 0 Information on smoking cessation initiated: No Hx Alcohol Use: No Drug/Substance Use Hx: No Substance Use Type: None Hx Substance Use Treatment: No <Ousmane Tovar - Last Filed: 10/04/18 18:33> <Sophy Howe - Last Filed: 10/06/18 13:47> - Past Medical History Allergies/Adverse Reactions: Allergies Allergy/AdvReac Type Severity Reaction Status Date / Time azithromycin [From Zithromax] Allergy Severe Swelling Verified 10/04/18 17:39 codeine [Codeine] Allergy Severe Swelling Verified 10/04/18 17:39 dexamethasone [From Decadron] Allergy Severe Swelling Verified 10/04/18 17:39 dexamethasone sod phosphate Allergy Severe Swelling Verified 10/04/18 17:39 [From Decadron] diltiazem HCl [From Cardizem] Allergy Severe Swelling Verified 10/04/18 17:39 montelukast sodium Allergy Severe Swelling Verified 10/04/18 17:39 [From Singulair] moxifloxacin HCl Allergy Severe Swelling Verified 10/04/18 17:39 [From Avelox] verapamil [Verapamil] Allergy Severe Swelling Verified 10/04/18 17:39 SOLE Inhibitors Allergy Unknown Swelling Verified 10/04/18 17:39 amoxicillin trihydrate Allergy Hives Verified 10/04/18 17:39 [From Augmentin] doxazosin mesylate Allergy Verified 10/04/18 17:39 [From Cardura] potassium clavulanate Allergy Hives Verified 10/04/18 17:39 [From Augmentin] tigecycline [From Tygacil] AdvReac Mild Itching Verified 10/04/18 17:39 candura Allergy Severe Swelling Uncoded 10/04/18 17:39 Home Medications: Ambulatory Orders Amlodipine Besylate [Norvasc -] 10 mg PO DAILY #0 tablet 06/14/12 Acetaminophen [Tylenol .Regular Strength -] 650 mg PO Q6H PRN #0 tablet Carvedilol [Coreg -] 12.5 mg PO BID #0 tablet 12/13/12 Cetirizine HCl [Zyrtec -] 10 mg PO DAILY 06/24/17 Cholecalciferol (Vitamin D3) [Vitamin D] 2,000 unit PO DAILY 10/04/18 Clindamycin [Cleocin -] 300 mg PO TID #21 capsule 10/04/18 Diphenhydramine HCl [Benadryl -] 25 mg PO Q6H PRN 10/04/18 Ibuprofen [Advil -] 400 mg PO PRN 10/04/18 Review of Systems - Review of Systems Able to Perform ROS?: Yes Is the patient limited Egyptian proficient: No Constitutional: No: Chills, Fever, Malaise HEENTM: No: Symptoms Reported Respiratory: No: Symptoms reported Cardiac (ROS): No: Symptoms Reported, See HPI, Chest Pain, Edema, Irregular Heart Rate, Lightheadedness, Palpitations, Syncope, Chest Tightness, Other ABD/GI: No: Nausea, Vomiting Musculoskeletal: Yes: See HPI. No: Muscle Pain Integumentary: Yes: See HPI, Change in Color, Other (lymphadema of b/l LE). No : Erythema Hematologic/Lymphatic: Yes: See HPI, Lymph Node Abnormalities (b/l LLE lymphadema) All Other Systems: Reviewed and Negative <Ousmane Tovar - Last Filed: 10/04/18 18:33> *Physical Exam - Vital Signs Last Vital Signs Temp Pulse Resp BP Pulse Ox 98.2 F 73 16 140/78 100 10/04/18 14:07 10/04/18 14:07 10/04/18 14:07 10/04/18 14:07 10/04/18 14:07 - Physical Exam Comments: 10/04/18 15:53 GENERAL: Well developed, well nourished. Awake and alert. No acute distress. CARDIOVASCULAR: Regular rate and rhythm. No murmurs, rubs, or gallops. PULMONARY: No evidence of respiratory distress. Lungs clear to auscultation bilaterally. No wheezing, rales or rhonchi. ABDOMINAL: Soft. Non-tender. Non-distended. No rebound or guarding. No organomegaly. Normoactive bowel sounds MUSCULOSKELETAL : moderate b/l non-pitting edema of b/l LLE with vascular malformation to skin of b/l lower extremities and small area of softness with skin discoloration of martin of left LE. no skin erythema. unable to palpate pulse of B/L LE due to extreme peripheral edema SKIN: Warm and dry. Normal capillary refill. No rashes. No jaundice. NEUROLOGICAL: Alert, awake, appropriate. No motor deficits in the lower extremities. Gait is normal without ataxia with walker. PSYCHIATRIC: Cooperative. Good eye contact. Appropriate mood and affect. General Appearance: Yes: Nourished, Appropriately Dressed. No: Apparent Distress <Ousmane Tovar - Last Filed: 10/04/18 18:33> - Vital Signs Last Vital Signs Temp Pulse Resp BP Pulse Ox 98.2 F 73 16 140/78 100 10/04/18 14:07 10/04/18 14:07 10/04/18 14:07 10/04/18 14:07 10/04/18 14:07 <Sophy Howe Uri - Last Filed: 10/06/18 13:47> ED Treatment Course - LABORATORY CBC & Chemistry Diagram: 10/04/18 17:11 10/04/18 17:11 - RADIOLOGY Radiology Studies Ordered: Category Date Time Status DUPLEX VASCUL US-2LEGS [US] Stat Ultrasound 10/04/18 15:22 Ordered <Ousmane Tovar - Last Filed: 10/04/18 18:33> - LABORATORY CBC & Chemistry Diagram: 10/04/18 17:11 10/04/18 17:11 - ADDITIONAL ORDERS Additional order review: 10/04/18 17:11 RBC 5.41 H MCV 68.3 L MCHC 31.4 L RDW 16.5 H MPV 7.5 Neutrophils % 61.2 Lymphocytes % 26.6 Monocytes % 6.8 Eosinophils % 4.1 Basophils % 1.3 <Bird Howeie Carleychirag - Last Filed: 10/06/18 13:47> Medical Decision Making - Medical Decision Making 10/04/18 15:57 Patient with history of hypertension, bilateral peripheral vascular disease. Chronic peripheral edema present with complaint of one year history of swelling to bilateral legs with one-week history of discharge from [facility] of left lower leg. Denies any redness to area. Patient reported clear discharge from swelling of left lower leg. Patient denies fever, chills. Patient reported she was instructed by PCP to follow-up in vascular clinic in [facility] for management of her peripheral vascular disease a year ago but never followed up and would follow-up now. Patient was admitted a year ago with bilateral peripheral edema and cellulitis of left leg which required IV antibiotics. Patient reports symptoms no does not look the same as a year ago. Patient wishes to be treated on outpatient basis and will follow up with vascular clinic Exam significant for moderate b/l non-pitting edema of b/l LLE with vascular malformation to skin of b/l lower extremities and small area of softness with skin discoloration of martin of left LE. no skin erythema. unable to palpate pulse of B/L LE due to extreme peripheral edema. duplex U/S of b/l LE ordered. Patient will be discharged on clindamycin with vascular follow-up if negative duplex 10/04/18 18:11 duplex of b/l LE shows partially compressible right popliteal DVT. no DVT in LLE. spoke to vasculr Dr. Sanchez who indicates DVT is most likely old and does not need anti-coagulation therapy and patient can follow-up on outpatient vascular clinic for follow-up management. Patient does not want to be admitted to the hospital and agrees with plan of outpatient follow-up. Patient will be discharge on daily ASA 81mg and clindamycin for possible infection with vascular follow-up. Strict instructions given to patient <Ousmane Tovar - Last Filed: 10/04/18 18:33> - Medical Decision Making The patient was seen and evaluated in conjunction with midlevel provider under my direct supervision, ancillary studies were reviewed. I agree with the plan as outlined by KEYANNA Tovar. HPI, workup/dispo as outlined. VS reviewed, wnl. no tachy and no hypoxia. normal respirations c/o 1 week of leg swelling worsening in left lower extrem. has been present x 1 year, but not followed up with vascular or wound clinic as previously advised. Ddx DVT, superficial thrombophlebitis, PVD, lymphedema, cellulitis exam with bilateral chronic venous stasis changes. no purulence or erythema or warmth to suggest infection. labs and duplex clindamycin for coverage, based on prior cultures. no systemic sx, nontoxic appearing shared decision making, pt prefers outpatient management and Dr Wilkes followup strict return precautions, worsening sx, infection, neuro changes, cannot walk. Duplex with right pop DVT, likely chronic, vascular cs and outpatient followup amenable. ASA for now, clinical recheck with PMD and vascular surgeon 10/06/18 13:44 10/06/18 13:46 10/06/18 13:47 <Sophy Howe - Last Filed: 10/06/18 13:47> *DC/Admit/Observation/Transfer - Discharge Dispostion Decision to Admit order: No <Ousmane Tovar - Last Filed: 10/04/18 18:33> <Sophy Howe - Last Filed: 10/06/18 13:47> Diagnosis at time of Disposition: Chronic venous insufficiency, Lymph edema Wound of left lower extremity Qualifiers: Encounter type: initial encounter Qualified Code(s): S81.802A - Unspecified open wound, left lower leg, initial encounter Deep venous thrombosis of right popliteal vein Qualifiers: Chronicity: chronic Qualified Code(s): I82.531 - Chronic embolism and thrombosis of right popliteal vein - Discharge Dispostion Disposition: HOME Condition at time of disposition: Stable - Prescriptions Prescriptions: Clindamycin [Cleocin -] 300 mg PO TID #21 capsule - Referrals Referrals: Daniel Burger MD [Staff Physician] - - Patient Instructions Printed Discharge Instructions: DI for Wound Infection Additional Instructions: Take medications as prescribed and finish it. Follow-up with vascular clinic with Dr. Jennyfer Sanchez as discussed for management of lymphedema and right DVT. Called tomorrow to make follow-up appointment within a week. Take daily 81mg daily . Come back to ED if fever, severe leg pains, redness of legs - Post Discharge Activity
[2018-10-04 17:34] LABS: BASO % 1.3 % (0-2.0); EOS % 4.1 % (0-4.5); HEMOGLOBIN 11.6 GM/dL (10.7-15.3); LYMPH % 26.6 % (8-40); MCH 21.5 pg (25.7-33.7); MCHC 31.4 g/dl (32.0-36.0); MEAN CELL VOLUME 68.3 fl (80-96); MEAN PLT VOLUME 7.5 fl (7.5-11.1); MONO % 6.8 % (3.8-10.2); NEUT % 61.2 % (42.8-82.8); PLATELET COUNT 317 K/MM3 (134-434); RBC 5.41 M/mm3 (3.60-5.2); RDW 16.5 % (11.6-15.6); WHITE BLOOD COUNT 7.7 K/mm3 (4.0-10.0)
[2018-10-04 17:46] LABS: INR 0.98 (0.83-1.09); PROTHROMBIN TIME (PATIENT) 11.6 SEC (9.7-13.0)
[2018-10-04 17:49] LABS: ACTIVATED PTT 36.7 SECONDS (25.2-36.5)
[2018-10-04 18:09] LABS: ALBUMIN 3.4 g/dl (3.4-5.0); ALK PHOS 156 U/L (45-117); ANION GAP 8 MMOL/L (8-16); BILIRUBIN,TOTAL 0.2 mg/dL (0.2-1); BLOOD UREA NITROGEN 10 mg/dL (7-18); CALCIUM 8.8 mg/dL (8.5-10.1); CHLORIDE 105 mmol/L (98-107); CO2 28 mmol/L (21-32); CREATININE 0.6 mg/dL (0.55-1.3); GLUCOSE,RANDOM 97 mg/dL (74-106); POTASSIUM 3.7 mmol/L (3.5-5.1); SGOT/AST 21 U/L (15-37); SGPT/ALT 29 U/L (13-61); SODIUM 141 mmol/L (136-145); TOT PROT 8.4 g/dl (6.4-8.2)
[2018-10-04 18:31] LABS: ANISOCYTOSIS 3+
[2018-10-04 18:32] LABS: MACROCYTOSIS 2+; PLATELET ESTIMATE ADEQUATE; TEAR DROP CELLS 1+
== END 2018-10-04 18:35 | disposition home or self-care (01) ==
LOC: JER 13:54
DX: I73.89 Other specified peripheral vascular diseases (principal); I87.2 Venous insufficiency (chronic) (peripheral); I89.0 Lymphedema, not elsewhere classified; I82.531 Chronic embolism and thrombosis of right popliteal vein; S81.802A Unspecified open wound, left lower leg, initial encounter; X58.XXXA Exposure to other specified factors, initial encounter; Y93.89 Activity, other specified; Y92.039 Unspecified place in apartment as the place of occurrence of the external cause; Y99.8 Other external cause status
CPT/HCPCS: 36415; 80053; 85025; 85610; 85730; 93970-TC; 99283-25